=== PATIENT | female | born 1965 | race Hispanic/Latino ===

== ENCOUNTER 2018-04-09 18:18 | Emergency (ER) | payer SELFPAY ==
[2018-04-09] MEDS ORDERED: ACETAMINOPHEN 325 MG TAB ONE (20:16)
== END 2018-04-09 20:22 | disposition home or self-care (01) ==
LOC: EDH 18:18
DX: S83.92XA Sprain of unspecified site of left knee, initial encounter (principal); X58.XXXA Exposure to other specified factors, initial encounter; Y93.39 Activity, other involving climbing, rappelling and jumping off; Y92.22 Religious institution as the place of occurrence of the external cause; Y99.8 Other external cause status
CPT/HCPCS: 73562